=== PATIENT | female | born 1980 | race Two or more races ===

== ENCOUNTER → 2018-07-29 | Outpatient (CLI) | payer BC | END | disposition home or self-care (01) | LOC: LAB 15:00 | PROVIDERS: ATTEND Specialist | DX: N93.9 Abnormal uterine and vaginal bleeding, unspecified (principal) ==

== ENCOUNTER 2021-09-07 19:55 | Emergency (ER) | payer BC ==
[~2021-09-07] VITALS: Ht 157.5 cm; Wt 79.4 kg
[2021-09-07 19:55] VITALS: BP 157/94
[2021-09-07] MEDS ORDERED: BACITRACIN TOP OINT 1 UD PKG TOP ONE (22:45)
[2021-09-07] MEDS ORDERED: TETANUS-DIPTH-ACEL PERTUSSIS 0.5ML SYR Tdap IM ONE (22:45)
[2021-09-07] MEDS ORDERED: BACITRACIN INJ 50000 UNIT VIAL TOP ONE (23:45)
== END 2021-09-08 00:12 | disposition home or self-care (01) ==
LOC: ER 19:55
DX: S61.211A Laceration without foreign body of left index finger without damage to nail, initial encounter (principal); W22.8XXA Striking against or struck by other objects, initial encounter; Y93.89 Activity, other specified; Y92.89 Other specified places as the place of occurrence of the external cause; Y99.8 Other external cause status
CPT/HCPCS: 12001; 73130; 90715